=== PATIENT | female | born 1965 | race Caucasian/White ===

== ENCOUNTER 2017-01-25 13:34 | Inpatient (IN) | payer BC ==
[2017-01-25] MEDS ORDERED: Levofloxacin/Dextrose 5%-Water 500 MG in Premix Bag 1 BAG IV ONE (14:00)
[2017-01-25] MEDS: Lactated Ringers 1,000 ML IV SCH (14:50)
[2017-01-25] MEDS ORDERED: metroNIDAZOLE/Normal Saline 500 MG in Premix Bag 1 BAG IV ONE (15:00)
[2017-01-25] MEDS: Albuterol 8 GM Inhaler INH SCH ×2 (15:01→21:29)
[2017-01-25] MEDS ORDERED: diphenhydrAMINE 50 MG/ML SDV IV ONE (17:00)
[2017-01-25] MEDS ORDERED: fentaNYL 100 MCG/2 ML SDV IV ONE (17:00)
[2017-01-25] MEDS ORDERED: Dexamethasone 4 MG/ML 5 ML MDV IVPUSH ONE (17:00)
[2017-01-25] MEDS ORDERED: Midazolam 1 MG/ML 2 ML SDV IV ONE (17:00)
[2017-01-25] MEDS ORDERED: Rocuronium 50 MG/5 ML Vial IV ONE (17:00)
[2017-01-25] MEDS ORDERED: Propofol 200 MG/20 ML SDV IV ONE (17:00)
[2017-01-25] MEDS ORDERED: Edrophonium Chloride 150 MG/15 ML MDV IVPUSH ONE (17:00)
[2017-01-25] MEDS ORDERED: Succinylcholine/Normal Saline 200 MG/10 ML Syringe IV ONE (17:00)
[2017-01-25] MEDS ORDERED: Ondansetron 4 MG/2 ML SDV IVPUSH ONE (17:00)
[2017-01-25] MEDS ORDERED: Lidocaine 1% with EPINEPHrine 1:100,000 20 ML MDV INJECT ONE (17:25)
[2017-01-25] MEDS ORDERED: Bupivacaine 0.5% 30 ML SDV INJECT ONE (17:26)
--- NOTE | 2017-01-25 18:12 | PCM.OPNOTE ---
- General Post-Op/Procedure Note Date of Surgery/Procedure: 01/25/17 Operative Procedure(s): umbilical hernia repair Findings: incarcerated umbilical hernia (om[place]um) Pre Op Diagnosis: incarcerated umbilical hernia Post-Op Diagnosis: incarcerated umbilical hernia (omentum) Anesthesia Technique: General ET tube, Local (6 ml 1 % lido with epi/0.5% buvipicaine) Primary Surgeon: Roc Sanchez Anesthesia Provider: Emy Edmonds Pathology: hernia sac and mesh Complications: None Condition: Good Free Text/Narrative:: see dictation
[2017-01-25] MEDS: Acetaminophen 1,000 MG in Premix Bag 1 BAG IV SCH ×2 (19:54→23:52)
--- NOTE | 2017-01-26 00:03 | OR ---
DATE OF OPERATION: 01/25/2017 SURGEON: Roc Sanchez MD PROCEDURE PERFORMED: Umbilical hernia repair with mesh. PREOPERATIVE DIAGNOSIS: Incarcerated umbilical hernia. POSTOPERATIVE DIAGNOSIS: Incarcerated umbilical hernia. INDICATIONS FOR PROCEDURE: This is a 51-year-old white female, who has a known recurrent umbilical hernia. Yesterday, she had an incarceration reduced. She presented to the clinic today with tenderness in the area and what appeared to be early peritoneal signs, and on the basis of this, she was offered and accepted exploratory laparotomy with repair of what appeared to be an umbilical hernia which was incarcerated. INTRAOPERATIVE FINDINGS: Are as follows: The patient had a small what appeared to be a slipped piece of mesh with incarcerated omentum. There was no evidence of necrosis. The defect itself was replaced with a Ventralex ST hernia patch, 8 x 12 cm in size. We ordered #[id number], lot number [id number] with an expiration at 2018-10-30. DESCRIPTION OF OPERATION: After an excellent general anesthetic was administered via endotracheal tube, the patient was prepped and draped in the usual sterile manner. Approximately 6 mL of 1:1 mixture of 1% lidocaine with epinephrine 0.5% bupivacaine was used to infiltrate our incision. A vertical midline incision was made in the area of the umbilicus approximately 10 cm, 10 inches in length. The underlying subcu fat was divided using electrocautery. The hernia sac was then entered, and incarcerated fat was encountered. This was carefully clamped, divided, and tied, this was omentum. Then the incarcerated adhered omentum and mesh were then excised from the anterior abdominal wall. The intestine was inspected, did not appear to have any area of necrosis or inflammation and the omentum itself also appeared to be unremarkable. The mesh was then placed into the abdominal cavity and tacked into position with a Tacker. The defect was then closed with a running 0 Prolene. 0 Vicryl was used to tack the umbilicus to the anterior abdominal wall and the fat was reapproximated using a running 0 Vicryl as well. [place] were used to close the skin. Needle, sponge, and instrument counts were reported as correct. The patient was taken to recovery room in good condition. /[id number] /MODL
[2017-01-26] MEDS: Lactated Ringers 1,000 ML IV SCH (01:40)
[2017-01-26] MEDS: HYDROmorphone 2 MG/ML SDV IVPUSH PRN ×3 (01:48→11:42)
[2017-01-26] MEDS: Acetaminophen 1,000 MG in Premix Bag 1 BAG IV SCH ×2 (05:21→13:03)
[2017-01-26 07:33] VITALS: BP 152/86
--- NOTE | 2017-01-26 09:43 | PCM.SURGPN ---
- General Info Date of Service: 01/26/17 POD#: 1 Functional Status: Reports: pain controlled, tolerating diet, ambulating, urinating. Denies: new symptoms - Review of Systems Cardiovascular: Reports: No Symptoms Gastrointestinal: Reports: Abdominal pain - Patient Data Vitals - most recent: Last Vital Signs Temp 36.4 C 01/26/17 07:33 Pulse 88 01/26/17 07:33 Resp 18 01/26/17 07:33 BP 152/86 H 01/26/17 07:33 Pulse Ox 95 01/26/17 07:33 Weight - most recent: 130.635 kg I&O - last 24 hours: Intake & Output 01/25/17 01/26/17 01/26/17 22:59 06:59 14:59 Intake Total 571 1139 Output Total 100 750 300 Balance 471 389 -300 Lab Results last 24 hrs: Laboratory Results - last 24 hr 01/25/17 01/25/17 Range/Units 14:15 14:15 WBC 10.4 (4.5-12.0) X10-3/uL RBC 5.05 (3.23-5.20) x10(6)uL Hgb 14.5 (11.5-15.5) g/dL Hct 43.5 (30.0-51.3) % MCV 86.2 (80-96) fL MCH 28.7 (27.7-33.6) pg MCHC 33.3 (32.2-35.4) g/dL RDW 12.3 (11.5-15.5) % Plt Count 185 (125-369) X10(3)uL MPV 11.5 H (7.4-10.4) fL Neut % (Auto) 66.7 (46-82) % Lymph % (Auto) 25.7 (13-37) % [place] % (Auto) 5.3 (4-12) % Eos % (Auto) 2 (1.0-5.0) % Baso % (Auto) 1 (0-2) % Neut # (Auto) 6.8 (1.6-8.3) # Lymph # (Auto) 2.7 (0.6-5.0) # [place] # (Auto) 0.6 (0.0-1.3) # Eos # (Auto) 0.2 (0.0-0.8) # Baso # (Auto) 0.1 (0.0-0.2) # Sodium 136 (135-145) mmol/L Potassium 4.1 (3.5-5.3) mmol/L Chloride 100 (100-110) mmol/L Carbon Dioxide 28 (23-29) mmol/L BUN 7 (5-20) mg/dL Creatinine 0.6 (0.6-1.3) mg/dL Est Cr Clr Drug Dosing 105.01 mL/min Estimated GFR (MDRD) > 60 (>60) BUN/Creatinine Ratio 11.7 (9-20) Glucose 228 H (80-116) mg/dL Calcium 9.1 (8.6-10.2) mg/dL Total Bilirubin 0.4 (0.1-1.3) mg/dL AST 27 (5-27) IU/L ALT 30 H (14-26) IU/L Alkaline Phosphatase 132 H (56-112) IU/L Total Protein 7.4 (6.0-8.0) g/dL Albumin 3.7 (3.5-5.2) g/dL Globulin 3.7 g/dL Albumin/Globulin Ratio 1.0 Med Orders - Current: Current Medications Albuterol (Ventolin Hfa) 0 gm INH BID [facility] Last Admin: 01/25/17 21:29 Dose: Not Given Hydromorphone HCl (Dilaudid) 1 mg IVPUSH Q1H PRN PRN Reason: Pain (moderate 4-6) Last Admin: 01/26/17 07:28 Dose: 1 mg Lactated Ringer's (Ringers, Lactated) 1,000 mls @ 125 mls/hr IV ASDIRECTED [facility] Last Admin: 01/26/17 01:40 Dose: 125 mls/hr Acetaminophen 1,000 mg/ Premix 100 mls @ 400 mls/hr IV Q6H [facility] Stop: 01/26/17 18:16 Last Admin: 01/26/17 05:21 Dose: 400 mls/hr Discontinued Medications Bupivacaine HCl (Marcaine 0.5%) 10 ml INJECT .STK-MED ONE Stop: 01/25/17 17:27 Last Admin: 01/25/17 17:26 Dose: 10 ml Levofloxacin/Dextrose 500 mg/ (Premix) 100 mls @ 100 mls/hr IV ONETIME ONE Stop: 01/25/17 14:59 Last Admin: 01/25/17 14:55 Dose: 100 mls/hr Metronidazole 500 mg/ Premix 100 mls @ 100 mls/hr IV ONETIME ONE Stop: 01/25/17 15:59 Last Admin: 01/25/17 15:57 Dose: 100 mls/hr Lidocaine/Epinephrine (Xylocaine 1% With Epinephrine 1:100,000) 10 ml INJECT .STK-MED ONE Stop: 01/25/17 17:26 Last Admin: 01/25/17 17:25 Dose: 10 ml - Exam Wound/Incisions: dressing dry and intact General: alert, oriented, cooperative, no acute distress Lungs: Clear to auscultation, Normal respiratory effort Cardiovascular: Regular Rate, Regular Rhythm Abdomen: bowel sounds present, soft, no tenderness, no distension - Problem List & Annotations (1) Incarcerated umbilical hernia SNOMED Code(s): 820587067 Code(s): K42.0 - UMBILICAL HERNIA WITH OBSTRUCTION, WITHOUT GANGRENE Status : Acute Current Visit: Yes - Problem List Review Problem List Initiated/Reviewed/Updated: Yes - My Orders Last 24 Hours: Active Orders 24 hr Category Date Time Status Patient Status [ADT] Routine ADT 01/25/17 13:49 Active Antiembolic Devices [RC] .Routine Care 01/25/17 13:52 Active Head of Bed Elevation [RC] ASDIRECTED Care 01/25/17 18:07 Active Intake and Output [RC] QSHIFT Care 01/25/17 18:07 Active Notify Provider Vital Signs [RC] PRN Care 01/25/17 18:08 Active Oxygen Therapy [RC] PRN Care 01/25/17 18:07 Active RT Incentive Spirometry [RC] Q2HWA Care 01/25/17 18:07 Active Ready for Discharge [RC] PER UNIT ROUTINE Care 01/26/17 09:35 Ordered Up With Assistance [RC] Q4HWA Care 01/25/17 18:07 Active VTE/DVT Education [RC] Click to Edit Care 01/25/17 13:52 Active Verify Patient Consent Obtain [RC] ASDIRECTED Care 01/25/17 13:49 Active Vital Signs [RC] Q4HR Care 01/25/17 18:07 Active Nothing Per Oral Diet [DIET] Diet 01/25/17 Lunch Active Regular Diet [DIET] Diet 01/26/17 Lunch Ordered Acetaminophen [Ofirmev] 1,000 mg Med 01/25/17 18:15 Active Premix Bag 1 bag IV Q6H Albuterol [Ventolin HFA] Med 01/25/17 14:00 Active 0 gm INH BID HYDROmorphone [Dilaudid] Med 01/25/17 18:07 Active 1 mg IVPUSH Q1H PRN Lactated Ringers [Ringers, Lactated] 1,000 ml Med 01/25/17 14:00 Active IV ASDIRECTED Abdominal Binder [OM.PC] Per Unit Routine Oth 01/25/17 18:07 Ordered DVT/VTE Prophylaxis Reflex [OM.PC] Routine Oth 01/25/17 13:49 Ordered Sequential Compression Device [OM.PC] Routine Oth 01/25/17 13:49 Ordered Resuscitation Status Routine Resus Stat 01/25/17 13:49 Ordered EKG 12 Lead [EK] Stat Ther 01/25/17 13:49 Stop Req Medication Orders Albuterol (Ventolin Hfa) 0 gm INH BID [facility] Last Admin: 01/25/17 21:29 Dose: Not Given Admin: 01/25/17 15:01 Dose: Not Given Hydromorphone HCl (Dilaudid) 1 mg IVPUSH Q1H PRN PRN Reason: Pain (moderate 4-6) Last Admin: 01/26/17 07:28 Dose: 1 mg Admin: 01/26/17 01:48 Dose: 1 mg Lactated Ringer's (Ringers, Lactated) 1,000 mls @ 125 mls/hr IV ASDIRECTED [facility] Last Admin: 01/26/17 01:40 Dose: 125 mls/hr Infusion: 01/25/17 22:50 Dose: 125 mls/hr Admin: 01/25/17 14:50 Dose: 125 mls/hr Acetaminophen 1,000 mg/ Premix 100 mls @ 400 mls/hr IV Q6H [facility] Stop: 01/26/17 18:16 Last Admin: 01/26/17 05:21 Dose: 400 mls/hr Infusion: 01/26/17 00:07 Dose: 400 mls/hr Admin: 01/25/17 23:52 Dose: 400 mls/hr Admin: 01/25/17 19:54 Dose: - Assessment Assessment (Free Text/Narrative):: ready for discharge. - Plan Plan (Free Text/Narrative):: will discharge after regular diet.
--- NOTE | 2017-01-26 09:45 | PCM.DCSUM1 ---
Discharge Summary - Hospital Course Free Text/Narrative:: Pt was admitted and underwent a umbilical hernia repair. incarcerated omentum was removed. post op course was unremarkable. ready for discharge POD #1. - Discharge Data Discharge Date: 01/26/17 Discharge Disposition: Home, Self-Care 01 Condition: Good - Discharge Diagnosis/Problem(s) (1) Incarcerated umbilical hernia SNOMED Code(s): 512412904 ICD Code: K42.0 - UMBILICAL HERNIA WITH OBSTRUCTION, WITHOUT GANGRENE Status: Resolved Current Visit: Yes - Patient Summary/Data Operative Procedure(s) Performed: umbilical hernia repair - Patient Instructions Diet: Usual Diet as Tolerated, No Alcoholic Beverages Activity: No Lifting Over 25 Pounds, No Strenuous Activities, Rest and Relax Today Driving: Do Not Drive (for 7 days ) Showering/Bathing: Shower in AM Notify Provider of: Fever, Increased Pain - Discharge Plan Prescriptions/Med Rec: Acetaminophen/HYDROcodone [[place] 325-5 MG] 1 - 2 tab PO Q6H PRN #30 tab PRN Reason: Pain Home Medications: Home Meds Acetaminophen with Codeine [Acetaminophen-Cod #3] 2 each PO Q4HR PRN 08/27/16 [ History] Liothyronine [Cytomel] 25 mcg PO DAILY 08/27/16 [History] metFORMIN [Glucophage XR] 500 mg PO DAILY 08/27/16 [History] Chlorzoxazone 500 mg PO TID 01/25/17 [History] Acetaminophen/HYDROcodone [[place] 325-5 MG] 1 - 2 tab PO Q6H PRN #30 tab [Rx] Referrals: Roc Sanchez MD [Physician] - (7-10 days ) - Discharge Summary/Plan Comment DC Time >30 min.: No - Patient Data Vitals - Most Recent: Last Vital Signs Temp 36.4 C 01/26/17 07:33 Pulse 88 01/26/17 07:33 Resp 18 01/26/17 07:33 BP 152/86 H 01/26/17 07:33 Pulse Ox 95 01/26/17 07:33 Weight - Most Recent: 130.635 kg I&O - Last 24 hours: Intake & Output 01/25/17 01/26/17 01/26/17 22:59 06:59 14:59 Intake Total 571 1139 Output Total 100 750 300 Balance 471 389 -300 Lab Results - Last 24 hrs: Laboratory Results - last 24 hr 01/25/17 01/25/17 Range/Units 14:15 14:15 WBC 10.4 (4.5-12.0) X10-3/uL RBC 5.05 (3.23-5.20) x10(6)uL Hgb 14.5 (11.5-15.5) g/dL Hct 43.5 (30.0-51.3) % MCV 86.2 (80-96) fL MCH 28.7 (27.7-33.6) pg MCHC 33.3 (32.2-35.4) g/dL RDW 12.3 (11.5-15.5) % Plt Count 185 (125-369) X10(3)uL MPV 11.5 H (7.4-10.4) fL Neut % (Auto) 66.7 (46-82) % Lymph % (Auto) 25.7 (13-37) % [place] % (Auto) 5.3 (4-12) % Eos % (Auto) 2 (1.0-5.0) % Baso % (Auto) 1 (0-2) % Neut # (Auto) 6.8 (1.6-8.3) # Lymph # (Auto) 2.7 (0.6-5.0) # [place] # (Auto) 0.6 (0.0-1.3) # Eos # (Auto) 0.2 (0.0-0.8) # Baso # (Auto) 0.1 (0.0-0.2) # Sodium 136 (135-145) mmol/L Potassium 4.1 (3.5-5.3) mmol/L Chloride 100 (100-110) mmol/L Carbon Dioxide 28 (23-29) mmol/L BUN 7 (5-20) mg/dL Creatinine 0.6 (0.6-1.3) mg/dL Est Cr Clr Drug Dosing 105.01 mL/min Estimated GFR (MDRD) > 60 (>60) BUN/Creatinine Ratio 11.7 (9-20) Glucose 228 H (80-116) mg/dL Calcium 9.1 (8.6-10.2) mg/dL Total Bilirubin 0.4 (0.1-1.3) mg/dL AST 27 (5-27) IU/L ALT 30 H (14-26) IU/L Alkaline Phosphatase 132 H (56-112) IU/L Total Protein 7.4 (6.0-8.0) g/dL Albumin 3.7 (3.5-5.2) g/dL Globulin 3.7 g/dL Albumin/Globulin Ratio 1.0 Med Orders - Current: Current Medications Albuterol (Ventolin Hfa) 0 gm INH BID [facility] Last Admin: 01/25/17 21:29 Dose: Not Given Hydromorphone HCl (Dilaudid) 1 mg IVPUSH Q1H PRN PRN Reason: Pain (moderate 4-6) Last Admin: 01/26/17 07:28 Dose: 1 mg Lactated Ringer's (Ringers, Lactated) 1,000 mls @ 125 mls/hr IV ASDIRECTED [facility] Last Admin: 01/26/17 01:40 Dose: 125 mls/hr Acetaminophen 1,000 mg/ Premix 100 mls @ 400 mls/hr IV Q6H [facility] Stop: 01/26/17 18:16 Last Admin: 01/26/17 05:21 Dose: 400 mls/hr Discontinued Medications Bupivacaine HCl (Marcaine 0.5%) 10 ml INJECT .STK-MED ONE Stop: 01/25/17 17:27 Last Admin: 01/25/17 17:26 Dose: 10 ml Levofloxacin/Dextrose 500 mg/ (Premix) 100 mls @ 100 mls/hr IV ONETIME ONE Stop: 01/25/17 14:59 Last Admin: 01/25/17 14:55 Dose: 100 mls/hr Metronidazole 500 mg/ Premix 100 mls @ 100 mls/hr IV ONETIME ONE Stop: 01/25/17 15:59 Last Admin: 01/25/17 15:57 Dose: 100 mls/hr Lidocaine/Epinephrine (Xylocaine 1% With Epinephrine 1:100,000) 10 ml INJECT .STK-MED ONE Stop: 01/25/17 17:26 Last Admin: 01/25/17 17:25 Dose: 10 ml *Q Meaningful Use (DIS) - VTE *Q VTE Criteria *Q: - Stroke *Q Stroke Criteria *Q: - AMI *Q AMI Criteria *Q:
[2017-01-26] MEDS: Albuterol 8 GM Inhaler INH SCH (10:09)
== END 2017-01-26 12:15 | disposition home or self-care (01) | DRG 228 ==
LOC: FB.MS 13:47 → EDSTATUS 16:00
PROVIDERS: ADMIT Surgery; ATTEND Surgery
PROC: 0WUF0JZ Supplement Abdominal Wall with Synthetic Substitute, Open Approach (ICD-10-PCS; principal; 2017-01-25)
PROC: 0WPF0JZ Removal of Synthetic Substitute from Abdominal Wall, Open Approach (ICD-10-PCS; 2017-01-25)
PROC: [UNRECOGNIZED PROCEDURE] (2017-01-25)
DX: K42.0 Umbilical hernia with obstruction, without gangrene (principal); T85.628A Displacement of other specified internal prosthetic devices, implants and grafts, initial encounter; E03.9 Hypothyroidism, unspecified; Z88.6 Allergy status to analgesic agent; Z88.1 Allergy status to other antibiotic agents; Z88.0 Allergy status to penicillin; Z88.2 Allergy status to sulfonamides; Z88.8 Allergy status to other drugs, medicaments and biological substances; Z91.018 Allergy to other foods; K92.89 Other specified diseases of the digestive system
CPT/HCPCS: 36415; 80053; 85025; 88302; 93005; A9270-GY; C1781; J0131; J1100; J1170; J1200; J1956; J2250; J2405; J2704; J3010; J7120

== ENCOUNTER 2017-06-07 07:32 | Day surgery (SDC) | payer BC ==
[2017-06-07] MEDS ORDERED: Propofol 200 MG/20 ML SDV IV ONE (07:33)
[2017-06-07] MEDS ORDERED: Midazolam 1 MG/ML 2 ML SDV IV ONE (07:33)
[2017-06-07] MEDS ORDERED: Lactated Ringers 1,000 ML IV SCH (07:45)
[2017-06-07] MEDS ORDERED: Sodium Chloride 0.9% 10 ML Syringe FLUSH PRN (07:45)
--- NOTE | 2017-06-07 09:20 | PCM.OPNOTE ---
- General Post-Op/Procedure Note Date of Surgery/Procedure: 06/07/17 Operative Procedure(s): c scope with bx Findings: descending colon polyp Pre Op Diagnosis: screening Post-Op Diagnosis: descending colon polyp Anesthesia Technique: MAC Primary Surgeon: Roc Sanchez Anesthesia Provider: Khloe Corral Pathology: descending colon polyp Complications: None Condition: Good Free Text/Narrative:: see dictation
[2017-06-07 09:58] VITALS: BP 149/81
--- NOTE | 2017-06-10 17:22 | PCM.SN ---
- Free Text/Narrative Note: at the time of the procedure there was no change to the h+p
--- NOTE | 2017-06-10 21:14 | OR ---
DATE OF OPERATION: 06/10/2017 SURGEON: Roc Sanchez MD PROCEDURE PERFORMED: Colonoscopy with cold forceps biopsy. PREOPERATIVE DIAGNOSIS: Need for screening colonoscopy. POSTOPERATIVE DIAGNOSIS: Descending colon polyp. INDICATIONS FOR PROCEDURE: This is a 52-year-old white female who presents for screening colonoscopy. She was offered and accepted the same. DESCRIPTION OF OPERATION: After an excellent IV sedation was administered, digital rectal exam was performed. No marked abnormality was noted. A flexible colonoscope was inserted and advanced without difficulty to the cecum. The prep was excellent. The following findings were noted. Ascending colon, unremarkable. Transverse colon, unremarkable. Descending colon near the splenic flexure, a small polypoid lesion, biopsied with cold biopsy forceps and sent for permanent. Sigmoid, unremarkable. Rectum and anus, unremarkable. Colon was deflated. The scope was removed. The patient tolerated the procedure well and was taken to recovery in good condition. /[id number] LANEY/SOFIE
== END 2017-06-07 10:23 | disposition home or self-care (01) ==
LOC: FB.SDS 07:32
PROVIDERS: ATTEND Surgery
DX: Z12.11 Encounter for screening for malignant neoplasm of colon (principal); D12.4 Benign neoplasm of descending colon; E03.9 Hypothyroidism, unspecified; Z88.0 Allergy status to penicillin; Z88.1 Allergy status to other antibiotic agents; Z88.2 Allergy status to sulfonamides; Z88.8 Allergy status to other drugs, medicaments and biological substances; Z79.84 Long term (current) use of oral hypoglycemic drugs; Z79.899 Other long term (current) drug therapy; Z98.890 Other specified postprocedural states
CPT/HCPCS: 45380; 82962; 88305; J2250; J2704; J7120

== ENCOUNTER 2020-06-26 12:08 | Emergency (ER) | payer BC ==
[2020-06-26] MEDS ORDERED: Potassium Chloride 20 MEQ Tab.ER PO ONE (14:01)
--- NOTE | 2020-06-26 14:08 | EDM.PDOC ---
ED HPI GENERAL MEDICAL PROBLEM - General Chief Complaint: Chest Pain Time Seen by Provider: 06/26/20 13:00 Source of Information: Reports: Patient History Limitations: Reports: No Limitations - History of Present Illness INITIAL COMMENTS - FREE TEXT/NARRATIVE: c/o fever and cough x 1w COVID neg 6d ago, repeat sent to lab 1d ago however has typical COVID sxs on metformin 500 mg BID with glu 331, does not know A1C, almost certainly will need additional DM meds for high glucose even when not ill which she should d/w PCP took APAP 1000 mg x 1 today fatigue, myalgias, still temp 100-101 Treatments ORE DIGGER: Reports: Acetaminophen Midsternal chest Pain Score (Numeric/FACES): 4 - Related Data Allergies Allergy/AdvReac Type Severity Reaction Status Date / Time amoxicillin Allergy Anaphylactic Verified 06/26/20 12:23 Shock clarithromycin [From Biaxin] Allergy Anaphylactic Verified 06/26/20 12:23 Shock clindamycin Allergy Swelling Verified 06/26/20 12:23 erythromycin base Allergy Anaphylactic Verified 06/26/20 12:23 [From Erythrocin] Shock gabapentin Allergy Confusion Verified 06/26/20 12:23 hydrocodone Allergy Vomiting Verified 06/26/20 12:23 ibuprofen Allergy Anaphylactic Verified 06/26/20 12:23 Shock naproxen Allergy Anaphylactic Verified 06/26/20 12:23 Shock NSAIDS (Non-Steroidal Allergy Anaphylactic Verified 06/26/20 12:23 Anti-Inflamma Shock Penicillins Allergy Anaphylactic Verified 06/26/20 12:23 Shock Sulfa (Sulfonamide Allergy Anaphylactic Verified 06/26/20 12:23 Antibiotics) Shock Tetanus Vaccines and Toxoid Allergy Anaphylactic Verified 06/26/20 12:23 Shock Tetracyclines Allergy Anaphylactic Verified 06/26/20 12:23 Shock Home Meds: Home Meds metFORMIN [Glucophage XR] 500 mg PO BID 08/27/16 [History] Ondansetron [Zofran ODT] 4 mg PO Q6H PRN 06/06/17 [History] Benzonatate [Tessalon Perle] 100 mg PO TID #21 capsule 06/26/20 [Rx] Cyclobenzaprine [Flexeril] 20 mg PO BEDTIME 06/26/20 [History] Ketorolac [Toradol] 10 mg ASDIRECTED PRN 06/26/20 [History] Propranolol [Inderal LA 24 Hr] 120 mg PO BID 06/26/20 [History] Topiramate 75 mg PO BEDTIME 06/26/20 [History] traMADol [Ultram] 50 - 100 mg PO Q6H PRN 06/26/20 [History] Past Medical History HEENT History: Reports: Impaired Vision Other HEENT History: wears glasses Cardiovascular History: Reports: None Respiratory History: Reports: Pneumonia, Recurrent, Other (See Below) Other Respiratory History: pneumonia 3 yrs 2012,2013,[id number] Gastrointestinal History: Reports: None, Hemorrhoids Genitourinary History: Reports: Renal Calculus Other Genitourinary History: PASSED CALCULI ON OWN. TUBE TEST TECHNICIAN History: Reports: Other TUBE TEST TECHNICIAN History: G0 Musculoskeletal History: Reports: Back Pain, Chronic Other Musculoskeletal History: hx fx R ring finger Neurological History: Reports: Concussion, Migraines Psychiatric History: Reports: None Endocrine/Metabolic History: Reports: Diabetes, Type II, Hypothyroidism, Other (See Below) Hematologic History: Reports: None Immunologic History: Reports: None Oncologic (Cancer) History: Reports: Basal Cell Carcinoma, Malignant Melanoma Dermatologic History: Reports: Cellulitis - Infectious Disease History Infectious Disease History: Reports: Chicken Pox, Influenza, Measles, Mononucleosis, Mumps, Scarlet Fever - Past Surgical History Head Surgeries/Procedures: Reports: None HEENT Surgical History: Reports: Oral Surgery Cardiovascular Surgical History: Reports: None Respiratory Surgical History: Reports: None GI Surgical History: Reports: Appendectomy, Colonoscopy, Hernia, Abdominal, Hernia Repair/Other Other GI Surgeries/Procedures: UMBILICAL HERNIORRAPHY ET VENTRAL HERNIORRAPHY SEVERAL YEARS LATER. Female Surgical History: Reports: Breast Biopsy, Hysterectomy Endocrine Surgical History: Reports: Other (See Below) Other Endocrine Surgeries/Procedures: has 1/2 of thyroid removed fpr goiter Neurological Surgical History: Reports: None Musculoskeletal Surgical History: Reports: None, Other (See Below) Other Musculoskeletal Surgeries/Procedures:: L wrist Oncologic Surgical History: Reports: Other (See Below) Other Oncologic Surgeries/Procedures: melanoma removed from R arm, Social & Family History - Family History HEENT: Reports: Glaucoma Cardiac: Reports: None, Other (See Below) Other Cardiac Family History: aortic aneurysm mom Respiratory: Reports: None GI: Reports: None : Reports: None OBGYN: Reports: Fibroids, Musculoskeletal: Reports: Osteoarthritis, RA Neurological: Reports: Migraines Psychiatric: Reports: None Endocrine/Metabolic: Reports: Diabetes, type II Hematologic: Reports: None Immunologic: Reports: None Dermatologic: Reports: None Oncologic: Reports: Bladder, Lung - Tobacco Use Tobacco Use Status *Q: Never Tobacco User - Caffeine Use Caffeine Use: Reports: Coffee - Recreational Drug Use Recreational Drug Use: No ED ROS GENERAL - Review of Systems Review Of Systems: See Below Constitutional: Reports: Weakness HEENT: Reports: No Symptoms Respiratory: Reports: Shortness of Breath, Cough Cardiovascular: Reports: No Symptoms Endocrine: Reports: No Symptoms GI/Abdominal: Reports: No Symptoms : Reports: No Symptoms Musculoskeletal: Reports: No Symptoms Skin: Reports: No Symptoms Neurological: Reports: No Symptoms Psychiatric: Reports: No Symptoms Hematologic/Lymphatic: Reports: No Symptoms Immunologic: Reports: No Symptoms ED EXAM, GENERAL - Physical Exam Exam: See Below Exam Limited By: Other (alert, nontoxic, mildly fatigued c/w lack of sleep from cough) General Appearance: Alert, WD/WN, No Apparent Distress Ears: Normal External Exam Nose: Normal Inspection Head: Atraumatic, Normocephalic Neck: Normal Inspection, Supple, Non-Tender, Full Range of Motion. No: Lymphadenopathy (R), Lymphadenopathy (L) Respiratory/Chest: Other (fair AE, freq nonproductive cough, slight end exp wheeze with "dry" cough only, no rhonchi/rales) Cardiovascular: Regular Rate, Rhythm, No Gallop, Other (2+ pretib edema b/l, symmetric) GI/Abdominal: Soft, Non-Tender Back Exam: Normal Inspection, Full Range of Motion Extremities: Normal Inspection, Normal Range of Motion, Non-Tender Neurological: Alert, Oriented, CN II-XII Intact, Normal Cognition, Normal Gait, No Motor/Sensory Deficits Psychiatric: Normal Affect, Normal Mood Skin Exam: Warm Lymphatic: No Adenopathy Course - Vital Signs Last Recorded V/S: Last Vital Signs Temp 36.6 C 06/26/20 12:08 Pulse 93 06/26/20 12:08 Resp 24 H 06/26/20 12:08 BP 161/114 H 06/26/20 12:08 Pulse Ox 100 06/26/20 12:08 - Orders/Labs/Meds Labs: Laboratory Tests 06/26/20 06/26/20 06/26/20 Range/Units 12:45 12:45 12:45 WBC 4.1 (3.0-10.3) x10-3/uL RBC 4.59 (3.60-5.20) x10(6)uL Hgb 13.8 (11.4-15.5) g/dL Hct 40.3 (34.2-48.2) % MCV 87.9 (76.7-100.5) fL MCH 30.1 (23.9-33.9) pg MCHC 34.3 (31.9-34.8) g/dL RDW 13.9 (12.3-16.5) % Plt Count 141 L (151-488) x10(3)uL MPV 10.6 (7.1-12.4) fL Neut % (Auto) 45.0 (30.8-76.2) % Lymph % (Auto) 46.1 (18.4-52.1) % [place] % (Auto) 6.6 (4.4-15.7) % Eos % (Auto) 1.1 (0.6-8.1) % Baso % (Auto) 1.2 (0.2-1.5) % Neut # (Auto) 1.8 (1.5-6.3) x10-3/uL Lymph # (Auto) 1.9 (1.0-4.4) x10-3/uL [place] # (Auto) 0.3 (0.3-1.0) x10-3/uL Eos # (Auto) 0.0 (0.0-0.8) x10-3/uL Baso # (Auto) 0.0 (0.0-0.1) x10-3/uL Sodium 137 (135-145) mmol/L Potassium 3.4 L (3.5-5.3) mmol/L Chloride 98 L (100-110) mmol/L Carbon Dioxide 29 (21-32) mmol/L BUN 6 L (7-18) mg/dL Creatinine 0.8 (0.55-1.02) mg/dL Est Cr Clr Drug Dosing 75.26 mL/min Estimated GFR (MDRD) > 60 (>60) BUN/Creatinine Ratio 7.5 L (9-20) Glucose 331 H (80-116) mg/dL Calcium 8.3 L (8.6-10.2) mg/dL Total Bilirubin 0.6 (0.1-1.3) mg/dL AST 46 H (5-25) IU/L ALT 47 H (12-36) U/L Alkaline Phosphatase 236 H (56-112) IU/L Troponin I 5.1 (4.0-60.3) pg/mL C-Reactive Protein 4.2 H* (0.5-0.9) mg/dL Total Protein 7.2 (6.0-8.0) g/dL Albumin 2.9 L (3.5-5.2) g/dL Globulin 4.3 g/dL Albumin/Globulin Ratio 0.7 Meds: Medications Discontinued Medications Generic Name Dose Route Start Last Admin Trade Name Freq PRN Reason Stop Dose Admin Potassium Chloride 40 meq 06/26/20 14:01 Klor-Con M20 PO 06/26/20 14:02 ONETIME ONE - Re-Assessments/Exams Free Text/Narrative Re-Assessment/Exam: 06/26/20 14:12 overall seems to be doing well without complications, even if COVID test from yesterday is neg, this would be a false neg works from home, not worked in past week, told she will need to be out another week mild inc'd LFTs and inc'd CRP c/w COVID continue symptomatic tx lives with who is not ill, has been isolating from at home, has cancelled Th'giving Departure - Departure Time of Disposition: 14:03 Disposition: Home, Self-Care 01 Condition: Good Clinical Impression: COVID-19, Hypokalemia, Diabetes mellitus with hyperglycemia - Discharge Information *PRESCRIPTION DRUG MONITORING PROGRAM REVIEWED*: Not Applicable *COPY OF PRESCRIPTION DRUG MONITORING REPORT IN PATIENT CATHERINE: Not Applicable Instructions: COVID-19 Frequently Asked Questions, Diabetes Mellitus and Sick Day Management Referrals: Genet Shetty NP [Primary Care Provider] - Forms: ED Department Discharge, ED Return to Work/School Form Additional Instructions: No work for one more week. Take acetaminophen 500 mg 2 tabs 4 times a day for 5-7 days. While it is unlikely that you will get worse, return to the Emergency Department if you do. Contact your doctor in one week if you are not need feeling much better. See your doctor in 1-2 weeks to discuss your diabetes (your glucose is quite high at 331) and your blood pressure (which is borderline high). Sepsis Event Note (ED) - Evaluation Sepsis Screening Result: Possible Sepsis Risk - Focused Exam Vital Signs: Vital Signs Temp Pulse Resp BP Pulse Ox 06/26/20 12:08 36.6 C 93 24 H 161/114 H 100
[2020-06-26 15:19] VITALS: BP 142/85; PULSE 86
== END 2020-06-26 14:23 | disposition home or self-care (01) ==
LOC: FB.ED 12:08
DX: U07.1 COVID-19 (principal); E87.6 Hypokalemia; E11.65 Type 2 diabetes mellitus with hyperglycemia; Z88.1 Allergy status to other antibiotic agents; Z88.6 Allergy status to analgesic agent; Z88.5 Allergy status to narcotic agent; Z88.0 Allergy status to penicillin; Z88.2 Allergy status to sulfonamides; Z88.7 Allergy status to serum and vaccine; Z79.84 Long term (current) use of oral hypoglycemic drugs; Z79.899 Other long term (current) drug therapy
CPT/HCPCS: 36415; 80053; 84484; 85025; 86140; 93005; 99285; A9270; 99283

== ENCOUNTER 2025-01-18 09:33 | Emergency (ER) | payer BC ==
[2025-01-18 09:52] VITALS: BP 145/86; PULSE 75
[2025-01-18] MEDS: hydrOXYzine HCl 50 MG/ML SDV IM ONE (10:12)
[2025-01-18 10:13] LABS: BASOPHILS ABSOLUTE AUTO 0.1 x10-3/uL (0.0-0.1); BASOPHILS PERCENT AUTO 0.8 % (0.2-1.5); EOSINOPHILS ABSOLUTE AUTO 0.1 x10-3/uL (0.0-0.8); EOSINOPHILS PERCENT AUTO 1.9 % (0.6-8.1); HEMATOCRIT 41.9 % (34.2-48.2); HEMOGLOBIN 14.2 g/dL (11.4-15.5); LYMPHOCYTES PERCENT AUTO 26.5 % (18.4-52.1); MEAN CORPUSCULAR HEMOGLOBIN 29.9 pg (23.9-33.9); MEAN CORPUSCULAR HGB CONC 33.8 g/dL (31.9-34.8); MEAN CORPUSCULAR VOLUME 88.5 fL (76.7-100.5); MONOCYTES ABSOLUTE AUTO 0.6 x10-3/uL (0.3-1.0); MONOCYTES PERCENT AUTO 7.4 % (4.4-15.7); NEUTROPHILS ABSOLUTE AUTO 4.8 x10-3/uL (1.5-6.3); NEUTROPHILS PERCENT AUTO 63.4 % (30.8-76.2); PLATELET COUNT,PLT 133 x10(3)uL (151-488); RED BLOOD CELL COUNT 4.74 x10(6)uL (3.60-5.20); RED CELL DISTRIBUTION WIDTH 13.6 % (12.3-16.5); WHITE BLOOD CELL COUNT,WBC 7.5 x10-3/uL (3.0-10.3)
[2025-01-18 10:15] LABS: BLOOD UREA NITROGEN,BUN 6 mg/dL (7-18); BUN/CREATININE RATIO 8.6 (9-20); CALCIUM 9.1 mg/dL (8.6-10.2); CARBON DIOXIDE,CO2 30 mmol/L (21-32); CHLORIDE,CL 100 mmol/L (100-110); CREATININE 0.7 mg/dL (0.55-1.02); EST CRCL DRUG DOSING (CG) 82.01 mL/min; ESTIMATED GFR 100 mL/min (>60); GLUCOSE RANDOM 280 mg/dL (80-116); SODIUM,NA 134 mmol/L (135-145)
[2025-01-18 10:21] LABS: A/G RATIO 0.7; ALANINE AMINOTRANSFERASE,ALT 35 U/L (12-36); ALKALINE PHOSPHATASE 269 IU/L (56-112); ASPARTATE AMNIOTRANSFERASE,AST 31 IU/L (5-25); BILIRUBIN TOTAL 0.7 mg/dL (0.1-1.3); PROTEIN TOTAL,TP 7.2 g/dL (6.0-8.0)
== END 2025-01-18 11:49 | disposition home or self-care (01) ==
LOC: FB.ED 09:33
DX: R07.89 Other chest pain (principal); E11.65 Type 2 diabetes mellitus with hyperglycemia; E03.9 Hypothyroidism, unspecified; Z90.49 Acquired absence of other specified parts of digestive tract; Z90.710 Acquired absence of both cervix and uterus; Z79.899 Other long term (current) drug therapy; Z79.82 Long term (current) use of aspirin; Z88.8 Allergy status to other drugs, medicaments and biological substances; Z88.2 Allergy status to sulfonamides; Z88.5 Allergy status to narcotic agent; Z88.0 Allergy status to penicillin; Z88.1 Allergy status to other antibiotic agents; Z91.048 Other nonmedicinal substance allergy status
CPT/HCPCS: 36415; 71045; 80053; 84484; 85025; 93010; 96372; 99284; 99285; J3410